=== PATIENT | male | born 1955 | race African-American/Black ===

== ENCOUNTER 2018-01-26 05:34 | Inpatient (IN) | payer MEDICAID, OTHER ==
[~2018-01-26] VITALS: Ht 177.8 cm; Wt 92.7 kg
[~2018-01-26 05:34] MED LIST: ALLO100T21 PO; INSU300S SC; LISI-420 PO
--- NOTE | 2018-01-26 05:34 | NUR ---
BIBA BLS TO ER BED 11
--- NOTE | 2018-01-26 05:36 | NUR ---
PATIENT IS A 62 Y/O MALE WHO PRESENTS TO THE ED C/O NAUSEA/VOMITING X1 WEEK. PER [facility] PT WAS FOUND AT [facility] 6 C/O N/V WITH COFFEE GROUND EMESIS X2 EPISODES. PT REPORTS 4/10 ACHING DIFFUSE ABD PAIN THAT DOES NOT RADIATE. PT DENIES CP, SOB, REPORTS NAUSEA/VOMITING DENIES DIARRHEA. PT AAOX4, RR EVEN/UNLABORED. PT REPOSITIONED FOR COMFORT, BED IN LOWEST POSITION. ER MD DR. MARTÍNEZ NOTIFIED. WILL CONTINUE TO MONITOR.
[2018-01-26 05:41] VITALS: BP 137/76
--- NOTE | 2018-01-26 05:41 | NUR ---
PATIENT UNABLE TO PROVIDE URINE AT THIS TIME.
[2018-01-26] MEDS ORDERED: ONDANSETRON 4 MG/2 ML VIAL IVP ONE (05:50)
[2018-01-26] MEDS ORDERED: PANTOPRAZOLE 40 MG INJ VIAL IVP ONE (05:50)
[2018-01-26] MEDS ORDERED: NACL 0.9% 1,000 ML IV ONE ×2 (05:50→06:45)
[2018-01-26 06:13] LABS: BASOPHILS # (AUTO) 0.1 K/uL (0.00-0.22); BASOPHILS % (AUTO) 0.9 % (0.0-2.0); EOSINOPHILS # (AUTO) 0.1 K/uL (0-0.4); EOSINOPHILS % (AUTO) 1.4 % (0.0-4.0); HEMATOCRIT 35.3 % (36-52); HEMOGLOBIN 11.5 g/dL (12.0-18.0); LYMPHOCYTES # (AUTO) 2.8 K/uL (2.0-11.5); LYMPHOCYTES % (AUTO) 32.7 % (20.5-51.1); MEAN CORPUSCULAR HEMOGLOBIN 28 pg (27-31); MEAN CORPUSCULAR HGB CONC 33 g/dL (33-37); MEAN CORPUSCULAR VOLUME 86.9 fL (80-94); MONOCYTES # (AUTO) 0.5 K/uL (0.8-1.0); MONOCYTES % (AUTO) 5.4 % (1.7-9.3); NEUTROPHILS # (AUTO) 5.1 K/uL (1.8-7.7); NEUTROPHILS % (AUTO) 59.6 % (42.2-75.2); PLATELET COUNT (AUTO) 268 K/uL (140-450); RED BLOOD CELL COUNT(AUTO) 4.06 MIL/uL (4.20-6.10); RED CELL DISTRIBUTION WIDTH 15.2 % (11.6-13.7); WHITE BLOOD COUNT (AUTO) 8.6 K/uL (4.8-10.8)
[2018-01-26] MEDS ORDERED: INSU300S SC (06:16)
[2018-01-26 06:27] LABS: ANION GAP 15.4 (8-16); CARBON DIOXIDE 24.3 mmol/L (21-32); CREATININE 1.4 mg/dL (0.7-1.3); POTASSIUM 3.7 mmol/L (3.5-5.1)
[2018-01-26 06:32] LABS: ALBUMIN 3.5 g/dL (3.4-5.0); TOTAL BILIRUBIN 1.5 mg/dL (0.0-1.0)
[2018-01-26 06:55] LABS: PROTHROMBIN TIME 10.6 secs (10.8-13.4)
[2018-01-26] MEDS ORDERED: NACL 0.9% 1,000 ML IV SCH (07:02)
[2018-01-26] MEDS ORDERED: ONDANSETRON 4 MG/2 ML VIAL IM/IVP PRN (07:05)
[2018-01-26] MEDS ORDERED: ACETAMINOPHEN 325 MG TAB PO PRN (07:05)
[2018-01-26] MEDS ORDERED: HYDROcodone/APAP 7.5/325 MG 1 TAB PO PRN (07:05)
[2018-01-26] MEDS ORDERED: DOCUSATE SODIUM 100 MG GELCAP PO PRN (07:05)
--- NOTE | 2018-01-26 07:15 | NUR ---
Regan cunningham in [facility] - 01/26/18 at 0718 by MEDLAZARUSV Pt report given to CONST[facility]ALSH Transfer of care at this time.
--- NOTE | 2018-01-26 07:17 | NUR ---
recieved report from Quinn. Addendum: 01/26/18 at [address] [facility] patient denies n/v/d & abd pain at this time.Patient appears to be resting comfortably in bed. Vital Signs within normal limits. Respirations even and unlabored.will continue to monitor.
--- NOTE | 2018-01-26 07:26 | NUR ---
x ray at bedside
[2018-01-26 07:40] VITALS: BP 121/70
--- NOTE | 2018-01-26 07:40 | NUR ---
PATIENT ARRIVED ON UNIT VIA ANARLYDIA WITH RN FROM ER. REPORT GIVEN PATIENT VS GATHERED AND STABLE. INITIAL ASSESSMENT PERFORMED. PATIENT STILL FINISHING 2L BOLUS OF NS. R HAND 20G. PATENT AND INTACT. SKIN INTACT. PATIENT DENIES NAUSEA OR VOMITING AT THIS TIME. STATED LBM THIS MORNING.LUNG SOUNDS CLEAR. BOWEL SOUNDS ACTIVE X 4 QUADS.MRSA SWAB COLLECTED. URINE SPECIMEN PENDING PATIENT TO VOID. PATIENT TO BE SEEN BY PRIMARY SHORTLY FOR ROUNDS. PATIENT ORIENTED TO ROOM. BOARD UPDATED.PLAN OF CARE DISCUSSED WITH PATIENT. CALL LIGHT WITHIN REACH. WILL CONT TO MONITOR.
--- NOTE | 2018-01-26 07:47 | NUR ---
Patient will be admitted to care of Dr. Elena. Admited to MS. Will go to [id number]. Belongings list completed. Report to Dilma PERES.
[2018-01-26 08:17] LABS: CHOL/HDL RATIO 5.5 (1-4.5); FREE T4 (FREE THYROXINE) 0.86 ng/dL (0.76-1.46); MAGNESIUM 1.6 mg/dL (1.8-2.4); PHOSPHORUS 2.7 mg/dL (2.5-4.9); THYROID STIMULATING HORMONE 1.21 uIU/mL (0.34-3.74)
--- NOTE | 2018-01-26 09:17 | NUR ---
PATIENT HAS BEEN SCREENED AND CATEGORIZED MODERATE NUTRITION RISK. PATIENT WILL BE SEEN WITHIN 3-5 DAYS OF ADMISSION. 01/28/18 - 01/30/[address]
--- NOTE | 2018-01-26 10:23 | NUR ---
DR BUCKLEY IN TO SEE PATIENT WITH NEW ORDERS FOR EGD AND REGLAN ORDERED.
[2018-01-26] MEDS ORDERED: INSULIN LANTUS 100 UNITS/ML 10 ML VIAL SUBQ SCH (10:30)
[2018-01-26] MEDS: DEXT 5% /NACL 0.9% 1,000 ML IV SCH ×2 (10:42→19:30)
[2018-01-26] MEDS ORDERED: METOCLOPRAMIDE 10 MG/2 ML INJ VIAL IVP SCH (10:45)
--- NOTE | 2018-01-26 10:45 | NUR ---
PATIENT TAKEN TO OR FOR EGD. CONSENT SIGNED . PATIENT AWAKE AND ALERT AT THIS TIME.
[2018-01-26] MEDS ORDERED: LISINOPRIL 20 MG TAB PO SCH ×2 (10:47→22:00)
[2018-01-26] MEDS ORDERED: MIDAZOLAM 2 MG/2 ML VIAL ONE ×3 (10:48→12:33)
[2018-01-26] MEDS ORDERED: diphenhydrAMINE 50 MG/ML VIAL ONE ×2 (10:49→12:34)
[2018-01-26] MEDS ORDERED: fentaNYL 0.05 MG/ML VIAL ONE ×2 (10:49→12:33)
--- NOTE | 2018-01-26 11:30 | NUR ---
PATIENT RETURNED BACK FROM OR PATIENT HAD REFUSED TO HAVE PROCEDURE DONE AT THIS TIME . PATIENT STATED HE HAD A PANIC ATTACK AND DID NOT WANT TO BE IN OR. EDUCATED PATIENT WITH RISKS AND BENEFITS OF PROCEDURE WELL PREMEDICATING HIM FOR ANXIETY BUT CONTINUE TO REFUSE AT THIS TIME. DR CERVANTES AWARE. DR BUCKLEY AWARE.
[2018-01-26 12:00] VITALS: BP 131/80
[2018-01-26] MEDS: BLOOD GLUCOSE MONITORING 1 DEV DEV FS SCH ×3 (12:29→21:06)
--- NOTE | 2018-01-26 12:30 | NUR ---
PATIENT AGREED TO TRY AGAIN FOR PROCEDURE. MADE DR BUCKLEY AWARE. WILL FOLLOW UP WITH AVAILABILITY.
--- NOTE | 2018-01-26 13:00 | NUR ---
PATIENT TAKEN TO OR AGAIN FOR EGD. PATIENT WITH CONSENT AND PREOP CHECKLIST. READY. PENDING RETURN.
[2018-01-26 13:01] LABS: APPEARANCE,URINE CLEAR (CLEAR); BILIRUBIN,URINE NEGATIVE (NEGATIVE); BLOOD, URINE NEGATIVE (NEGATIVE); COLOR,URINE YELLOW (YELLOW); LEUKOCYTE ESTERASE ,URINE NEGATIVE (NEGATIVE); NITRITE, URINE NEGATIVE (NEGATIVE); UGLUCOSE NEGATIVE (NEGATIVE)
[2018-01-26] MEDS ORDERED: fentaNYL 0.05 MG/ML VIAL IVP ONE (13:15)
[2018-01-26] MEDS ORDERED: MIDAZOLAM 2 MG/2 ML VIAL IVP ONE (13:15)
--- NOTE | 2018-01-26 13:30 | NUR ---
PATIENT RETURNED FROM PROCEDURE AND TOLERATED WELL. VSS. DROWSY BUT RESPONDING APPROPRIATELY. WILL GIVE ICE CHIPS WHEN MORE AWAKE. PATIENT TO RECEIVE FULL LIQUID DIET FOR DINNER.
[2018-01-26 13:47] LABS: BARBITURATE, URINE NEG. ng/ml (NEG <=200); BENZODIAZEPINE, URINE NEG. ng/mL (NEG <=200); CANNABINOID, URINE NEG. ng/mL (NEG <=50); COCAINE, URINE NEG. ng/mL (NEG <=300); OPIATE, URINE NEG. ng/mL (NEG <=2000); PHENCYCLIDINE SCREEN,URINE NEG. ng/mL (NEG <=25)
--- NOTE | 2018-01-26 14:20 | NUR ---
RECEIVED A CALL FROM [employer] ADMINISTRATION ANALYST. THIS PATIENT HAS HN COV [place] AND TO FAX REVIEW TO [phone]. PHONE [phone]. FAXED INITIAL REVIEW.
--- NOTE | 2018-01-26 15:30 | NUR ---
PATIENT ALERT AND ABLE TO MAKE NEEDS KNOWN. PATIENT ASKING ABOUT DISCHARGE INFORMED PATIENT THERE IS NO DISCHARGE ORDERED OF YET. DR CERVANTES IN EARLIER TO DISCUSS RESULTS OF EGD WITH PATIENT. PATIENT VERBALIZED UNDERSTANDING AND AGREEMENT. WILL CONT TO MONITOR.
[2018-01-26 16:00] VITALS: BP 135/75
[2018-01-26] MEDS: METOCLOPRAMIDE 10 MG TAB PO SCH (16:30)
[2018-01-26] MEDS: SENNA 8.6 MG TAB PO SCH (17:00)
[2018-01-26] MEDS ORDERED: METOCLOPRAMIDE 10 MG/2 ML INJ VIAL IVP PRN (17:00)
[2018-01-26] MEDS ORDERED: SENNA 8.6 MG TAB PO SCH (17:00)
--- NOTE | 2018-01-26 17:30 | NUR ---
PATIENT IN ROOM EATING DINNER. TOLERATING FULL LIQUID DIET WELL. NO CHOLO BLOOD NOTED. NO N/V .WILL CONT TO MONITOR.
--- NOTE | 2018-01-26 19:10 | NUR ---
ENDORSED REPORT TO CARDIOLOGY COORDINATOR NURSE. PATIENT STABLE.
--- NOTE | 2018-01-26 19:11 | NUR ---
RECEIVED BEDSIDE REPORT FROM DAY SHIFT NURSE ANASTASIA RN, PT STABLE, NO DISTRESS NOTED, SITTING BY BEDSIDE USING HIS PERSONAL COMPUTER, IV TO R HAND 20G RUNNING D5NS @ 130 ML/HR, PT ON ROOM AIR NO SOB, INITIAL ASSESSMENT DONE, ALL SAFETY PRECAUTION MET, WILL CONTINUE TO MONITOR.
[2018-01-26 20:00] VITALS: BP 150/78
--- NOTE | 2018-01-26 20:30 | NUR ---
NOTIFIED DR. RICHARDS REGARDING PT BP 150/78, PT STATED HAVING NO PAIN, STATED SHE IS GOING TO PUT IN ORDER FOR THE BP MEDICATION, WILL CONTINUE WITH ORDERS.
[2018-01-26] MEDS: INSULIN LISPRO SLIDING SCALE 100 UNITS/ML VIAL SUBQ PRN (21:06)
--- NOTE | 2018-01-26 21:06 | NUR ---
DUE MEDICATION ADMINISTERED, PT TOLERATED WELL, NO DISTRESS NOTED, CALL LIGHT WITHIN REACH, WILL CONTINUE TO MONITOR.
--- NOTE | 2018-01-26 22:13 | NUR ---
DUE MEDICATION GIVEN, PT TOLERATED WELL, NO DISTRESS NOTED, CALL LIGHT WITHIN REACH, WILL CONTINUE TO MONITOR.
[2018-01-27] VITALS: BP_SYST 147; BP_SYST 159; BP_DIAS 80; BP_DIAS 89
--- NOTE | 2018-01-27 00:12 | NUR ---
PT AMBULATED TO BATHROOM AND BACK TO BED, PT STABLE, NO DISTRESS NOTED, CALL LIGHT WITHIN REACH, WILL CONTINUE TO MONITOR.
[2018-01-27] MEDS: DEXT 5% /NACL 0.9% 1,000 ML IV SCH (02:33)
--- NOTE | 2018-01-27 02:42 | NUR ---
CHECKED ON PT, PT SLEEPING, NO DISTRESS NOTED, CALL LIGHT WITHIN REACH, WILL CONTINUE TO MONITOR.
[2018-01-27 04:00] VITALS: BP 115/72
--- NOTE | 2018-01-27 05:09 | NUR ---
CHECKED ON PT, PT SLEEPING, NO DISTRESS NOTED, CALL LIGHT WITHIN REACH, WILL CONTINUE TO MONITOR.
[2018-01-27] MEDS: BLOOD GLUCOSE MONITORING 1 DEV DEV FS SCH ×2 (06:21→12:05)
[2018-01-27] MEDS: METOCLOPRAMIDE 10 MG TAB PO SCH ×2 (06:44→12:02)
--- NOTE | 2018-01-27 06:44 | NUR ---
PT REFUSED METOCLOPRAMIDE, STATED THAT HE DOES NOT WANT TO TAKE IT. PT STABLE, NO DISTRESS NOTED, CALL LIGHT WITHIN REACH, WILL CONTINUE TO MONITOR.
[2018-01-27 06:49] LABS: BASOPHILS % (AUTO) 0.6 % (0.0-2.0); EOSINOPHILS # (AUTO) 0.1 K/uL (0-0.4); EOSINOPHILS % (AUTO) 2.3 % (0.0-4.0); HEMATOCRIT 26.3 % (36-52); HEMOGLOBIN 8.6 g/dL (12.0-18.0); LYMPHOCYTES # (AUTO) 2.2 K/uL (2.0-11.5); LYMPHOCYTES % (AUTO) 41.4 % (20.5-51.1); MEAN CORPUSCULAR HEMOGLOBIN 29 pg (27-31); MEAN CORPUSCULAR HGB CONC 33 g/dL (33-37); MEAN CORPUSCULAR VOLUME 87.7 fL (80-94); MONOCYTES # (AUTO) 0.3 K/uL (0.8-1.0); MONOCYTES % (AUTO) 5.5 % (1.7-9.3); NEUTROPHILS # (AUTO) 2.6 K/uL (1.8-7.7); NEUTROPHILS % (AUTO) 50.2 % (42.2-75.2); PLATELET COUNT (AUTO) 187 K/uL (140-450); RED CELL DISTRIBUTION WIDTH 15.2 % (11.6-13.7); WHITE BLOOD COUNT (AUTO) 5.3 K/uL (4.8-10.8)
[2018-01-27 07:04] LABS: ANION GAP 12.3 (8-16); CARBON DIOXIDE 25.2 mmol/L (21-32); CREATININE 1.2 mg/dL (0.7-1.3); POTASSIUM 3.5 mmol/L (3.5-5.1)
[2018-01-27 07:09] LABS: MAGNESIUM 1.7 mg/dL (1.8-2.4); PHOSPHORUS 2.8 mg/dL (2.5-4.9)
--- NOTE | 2018-01-27 07:22 | NUR ---
ENDORSED PLAN OF CARE TO DAY SHIFT NURSE ROYER RN, PT STABLE, NO DISTRESS NOTED, CALL LIGHT WITHIN REACH.
--- NOTE | 2018-01-27 07:23 | NUR ---
RECEIVED REPORT FROM WOOD CAR BUILDER RN. PATIENT IS AAOX4, HAS NO SIGNS AND SYMPTOMS OF ACUTE DISTRESS NOTED AT THIS TIME. HAS IV TO THE RIGHT HAND 20G INFUSING D5NS AT 130ML/HR. SITE IS CLEAN, DRY, PATENT AND INTACT. DISCUSSED PLAN OF CARE WITH PATIENT AND HE VERBALIZED UNDERSTANDING. BED IN LOWEST POSITION, SIDE RAILS UP X2, CALL LIGHT WITHIN REACH. WILL CONTINUE TO MONITOR.
[2018-01-27 08:00] VITALS: BP 130/77
[2018-01-27 08:51] LABS: T4 (THYROXINE) 8.8 ug/dL (4.5-12.0)
[2018-01-27] MEDS ORDERED: PANTOPRAZOLE 40 MG INJ VIAL IVP SCH (09:00)
[2018-01-27] MEDS ORDERED: ATORVASTATIN 20 MG TAB PO SCH (09:00)
[2018-01-27] MEDS ORDERED: LISINOPRIL 20 MG TAB PO SCH (09:00)
[2018-01-27] MEDS: SENNA 8.6 MG TAB PO SCH (10:13)
[2018-01-27] MEDS ORDERED: METO10TA98 PO (11:25)
[2018-01-27] MEDS ORDERED: PANT40EC PO (11:25)
[2018-01-27] MEDS ORDERED: SUCR1TAB35 PO (11:25)
[2018-01-27 12:00] VITALS: BP 129/67
[2018-01-27] MEDS: INSULIN LISPRO SLIDING SCALE 100 UNITS/ML VIAL SUBQ PRN (12:09)
--- NOTE | 2018-01-27 12:40 | NUR ---
DISCHARGE ORDER IS IN PLACE. PATIENT AWARE. GAVE HIM INSTRUCTIONS ON WHEN TO FOLLOW UP WITH DR PAVAN CHERRY. INFORMED HIM THAT THE DOCTOR IS SENDING HIM HOME WITH A PRESCRIPTION. EDUCATED HIM ON S/SX OF DISTRESS TO SEEK EMERGENCY MEDICAL ATTENTION. PATIENT VERBALIZED UNDERSTANDING. STOP NORMAL SALINE AT THIS TIME. REMOVED IV FROM SITE. CATHETER INTACT. SITE IS CLEAN AND DRY. ALL BELONGING ARE WITH PATIENT. HAS NO SIGNS AND SYMPTOMS OF ACUTE DISTRESS NOTED AT THIS TIME. WILL WALK OUT WITH PATIENT.
--- NOTE | 2018-01-29 14:59 | NUR ---
CM NOTE RETRO REVIEW FAXED TO [facility] / FAX# [phone], ATTN: ZAMZAM #[phone]
== END 2018-01-27 12:40 | disposition home or self-care (01) | DRG 368 ==
LOC: MED 05:34 → MTU 07:13
PROVIDERS: ADMIT Family Medicine Sports Medicine; ATTEND Family Medicine Sports Medicine
PROC: 0DB68ZX Excision of Stomach, Via Natural or Artificial Opening Endoscopic, Diagnostic (ICD-10-PCS; 2018-01-26)
PROC: 0DB48ZX Excision of Esophagogastric Junction, Via Natural or Artificial Opening Endoscopic, Diagnostic (ICD-10-PCS; principal; 2018-01-26 11:05)
DX: K22.6 Gastro-esophageal laceration-hemorrhage syndrome (principal); N17.0 Acute kidney failure with tubular necrosis; E83.42 Hypomagnesemia; E11.9 Type 2 diabetes mellitus without complications; E78.5 Hyperlipidemia, unspecified; I10 Essential (primary) hypertension; E78.1 Pure hyperglyceridemia; E66.9 Obesity, unspecified; K21.0 Gastro-esophageal reflux disease with esophagitis; K44.9 Diaphragmatic hernia without obstruction or gangrene; K29.81 Duodenitis with bleeding; K29.71 Gastritis, unspecified, with bleeding; Z79.4 Long term (current) use of insulin; Z72.89 Other problems related to lifestyle; Z68.29 Body mass index [BMI] 29.0-29.9, adult; Z79.82 Long term (current) use of aspirin
CPT/HCPCS: 36415; 71045; 80048; 80053; 80305; 81003; 82150; 82948; 83036; 83690; 83735; 83880; 84100; 84436; 84439; 84443; 84479; 85025; 85610; 85730; 86677; 87081; 93005; 96374; 96375; 99285; C1758; C9113; J1200; J1815; J2250; J2405; J2765; J3010; J7030; J7042; J8597; Q0092